=== PATIENT | male | born 1950 | race Caucasian/White ===

== ENCOUNTER → 2019-05-17 16:37 | Outpatient (CLI) | payer OTHER, SELFPAY ==
[2019-05-17 18:15] LABS: Cholesterol 186 mg/dL (140-199); HDL Cholesterol 42 mg/dL (40-60); LDL Cholesterol Calculated 91 mg/dL (<100); Triglycerides 266 mg/dL (35-150)
== END ==
PROVIDERS: PCP Family Medicine; Visit Provider Internal Medicine Cardiovascular Disease
DX: E78.5 Hyperlipidemia, unspecified (principal)
CPT/HCPCS: 36415; 80061

== ENCOUNTER → 2019-06-22 07:48 | Outpatient (CLI) | payer OTHER, SELFPAY ==
--- NOTE | 2019-06-22 | DI.ECHO.S_ITS ---
[place] +---------+ [facility] +---------+ : : [address] : : : : [id number] : : : : Phone: [phone]+ Echocardiogram Report + + :Name: MARIE PERLA Study Date: 06/22/2019 Height: 69 in : :[facility] Weight: 182 lb : : Gender: Male BSA: 2.0 m2 : :: 1950 Age: 68 yrs BP: 158/62 mmHg: :Reason For Study: Arrhythmia, SVT : :Ordering Physician: Aimee Singletary : :Rosalind Performed By: Rima Rodriguez : :Referring: Dr. Santiago Guzmán : + + Interpretation Summary 1) Normal left ventricular size, wall motion, and systolic function (EF 60- 65%). 2) The right ventricle grossly appears normal in size with probable normal systolic function. 3) No significant valvular abnormalities. 4) No prior Echo available for comparison. Procedure: A two-dimensional transthoracic echocardiogram with color flow and Doppler was performed. The study quality was technically adequate. There is no prior echocardiogram noted for this patient. The patient was in normal sinus rhythm during the exam. Left Ventricle: The left ventricle is normal in size, wall thickness, and systolic function without any focal wall motion abnormalities. The ejection fraction is estimated to be 60-65%. Diastolic function could not be accurately assessed due to atrial fibrillation. Right Ventricle: The right ventricle grossly appears normal in size with probable normal systolic function. Atria: The left atrium is borderline dilated. Right atrial size is normal. The interatrial septum is intact with no evidence for an atrial septal defect. Mitral Valve: The mitral valve is normal in structure and function. There is no mitral regurgitation noted. Aortic Valve: The aortic valve opens well. No aortic regurgitation is present. Tricuspid Valve: The tricuspid valve is normal in structure and function. No tricuspid regurgitation. Pulmonic Valve: The pulmonic valve is not well seen, but is grossly normal. There is no pulmonic valvular regurgitation. Great Vessels: The aortic root is normal size. The ascending aorta is at the upper limits of normal in size. The aortic arch is normal in size. The IVC is of normal diameter and collapses greater than 50% with a sniff. This suggests a low right atrial pressure of 3 mm Hg. Pericardium/ Pleura There is no pericardial effusion. There is no pleural effusion. MMode/2D Measurements & Calculations LVIDd: 4.6 cm Ao root diam: 3.6 cm LVIDs: 2.8 cm Aortic Jxn: 2.9 cm FS: 38.8 % asc Aorta Diam: 3.6 cm EPSS: 0.40 cm Ao Arch Diam (Prox Trans): 2.7 cm IVSd: 0.98 cm LVPWd: 1.1 cm LV petersen. diameter/BSA (cm/m^2): 2.3 LV sys. diameter/BSA (cm/m^2): 1.4 LA dimension: 3.8 cm RA long axis: 4.9 cm LA A2 area: 21.5 cm2 RA area: 18.0 cm2 LA A4 area: 20.9 cm2 RA vol: 56.3 ml LA length (vol): 5.4 cm RA : 28.4 ml/m2 LA vol: 71.0 ml RVDd major: 6.1 cm LA vol index: 35.8 ml/m2 RVD1 (basal): 3.8 cm RVD2 (mid): 3.1 cm Doppler Measurements & Calculations Ao V2 max: 124.6 cm/sec MV E max jamil: 60.0 cm/sec Ao V2 mean: 81.2 cm/sec MV A max jamil: 75.8 cm/sec Ao max P.2 mmHg MV E/A: 0.79 Ao mean P.1 mmHg Med Peak E' Jamil: 6.6 cm/sec Ao V2 VTI: 26.1 cm E/E' med: 9.0 Lat Peak E' Jamil: 6.2 cm/sec E/E' lat: 9.7 E/e' average: 9.3 MV dec time: 0.36 sec MV P1/2t: 107.0 msec PA V2 max: 82.1 cm/sec MV P1/2t max jamil: 60.5 cm/sec PA V2 mean: 55.4 cm/sec MVA(P1/2t): 2.1 cm2 PA mean P.4 mmHg PA Accel Time: 0.16 sec Reading Physician:10:27 AM
--- NOTE | 2019-06-22 | DI.NM.S_ITS ---
PROCEDURE: NM TERRIE PERF SPECT REST & STR Rest and exercise myocardial perfusion SPECT with gated imaging and ejection fraction RADIOPHARMACEUTICAL: 13.8 mCi Tc-99m sestamibi IV at rest and 26.7 mCi Tc-99m sestamibi IV at peak exercise. A two day-protocol was performed. INDICATIONS: Ventricular tachycardia TECHNIQUE: Radiopharmaceutical was injected at peak stress test, and also at rest. SPECT images were obtained. SPECT myocardial perfusion images were displayed in short axis, horizontal long axis, and vertical long axis views. Gated images were reviewed using [employer] software. COMPARISON: None. CARDIAC STRESS: A standard Obed treadmill exercise tolerance test was performed by the patient under the supervision of an attending staff. The patient exercised for 4 minutes and 56 seconds; functional aerobic impairment (RAZ) is +25% on sedentary scale. Hemodynamic data: There is normal heart rate response to exercise stress. Patient achieved 105% of maximum predicted heart rate at peak exercise. Resting BP 158/80mmHg max BP 202/104mmHg suggesting hypertension and borderline hypertensive response. Symptoms: Patient denied chest pain during exercise. EKG: Resting ECG shows normal sinus rhythm. No diagnostic ECG changes of ischemia with exercise; rare PVCs during recovery. FINDINGS: Raw data: There is good myocardial labeling by radiotracer. No significant motion artifacts. Dmmf-rj-[id number] ratio is 0.37 (normal is less than 0.38 for sestamibi tracer, and less than 0.50 for thallium tracer). Left ventricle function: Gated images demonstrate normal left ventricle wall thickening. No segmental wall motion abnormality. No transient ischemic dilation; TID is 0.7 (normal less than 1.3). The left ventricle resting end-diastolic volume is 101 mL. Left ventricle stress ejection fraction is 72%; normal values are above 45%. Myocardial perfusion: There is a moderately severe fixed defect in the inferior wall that resolves with prone imaging, suggesting diaphragmatic attenuation artifact than true ischemia or infarct. IMPRESSION: Low risk, normal treadmill nuclear stress test. 1) No perfusion evidence of ischemia or infarction. Diaphragmatic attenuation artifact present. 2) Normal left ventricular size, wall motion, and systolic function (EF post stress 72%). 3) No ECG evidence of ischemia. Rare PVCs during recovery. 4) No angina during the study. 5) Reduced exercise tolerance (7.0 METs, RAZ +25% on sedentary scale). Target heart rate achieved. 6) Resting BP 158/80mmHg max BP 202/104mmHg suggesting hypertension and borderline hypertensive response. 7) No prior nuclear stress test available for comparison. Dictated by: Aimee Boyer MD on 06/23/2019 at 13:03 Approved by: Aimee Boyer MD on 06/23/2019 at 13:08
--- NOTE | 2019-06-22 14:57 | PM.TREADMILL ---
Cardiac Stress Test Report Referral & Results Date Patient Seen: 06/22/19 Requesting provider: Aimee Boyer Indication: Dysrhythmia Rest ECG: Unremarkable Procedure Note: Today following both written and verbal informed consent the patient was exercised according to a standard Obed protocol patient went for a total of 4 minutes 56 seconds achieving a maximum heart rate of 158 maximum systolic blood pressure of 200 to. This is approximately 7.0 METS. Exercise was terminated at this point because of inability patient keep up with the treadmill and hip pain. Patient was also given Cardiolite through a previously started Hep-Lock IV by the diagnostic imaging staff approximately 1 minute prior to the cessation of exercise. No ST-T segment changes identified Patient was quickly tachycardic and overall somewhat hypertensive in his response to exercise. His heart rate was very slow to return to baseline during recovery portion of the test. Occasional PACs PVCs and a ventricular couplet were noted Functional aerobic impairment rates about 25% of the sedentary scale Impression: No evidence of ischemia based on usual ECG criteria Limited exercise capacity Please see perfusion imaging report as well Please note: Actual ECG tracings can be found in the PACS system.
== END ==
PROVIDERS: PCP Family Medicine; Visit Provider Internal Medicine Cardiovascular Disease
DX: I47.2 Ventricular tachycardia (principal); I47.1 Supraventricular tachycardia; I49.9 Cardiac arrhythmia, unspecified
CPT/HCPCS: 78452; 93016; 93017; 93018; 93306; A9502

== ENCOUNTER → 2019-08-20 11:55 | Outpatient (CLI) | payer OTHER, SELFPAY ==
--- NOTE | 2019-08-20 | DI.US.S_ITS ---
PROCEDURE: US ARTERIAL DUPLEX LE BI INDICATIONS: Peripheral vascular disease, unspecified TECHNIQUE: Color and pulse Doppler interrogation was performed of both lower extremity arterial systems, with image documentation. COMPARISON: None. FINDINGS: Right lower extremity: Common femoral artery: 100 cm/sec, with biphasic flow. Deep femoral artery: 136 cm/sec, with biphasic flow. Proximal superficial femoral artery: 80 cm/sec, with monophasic flow. Mid superficial femoral artery: 24 cm/sec with minimal monophasic Distal superficial femoral artery: 46 cm/sec, with monophasic flow. Popliteal artery: 32 cm/sec, monophasic. Posterior tibial artery: 24 cm/sec, with monophasic flow proximally although appears occluded at the mid segment. Anterior tibial artery/dorsalis pedis: 9 cm/sec, with minimal monophasic flow at the mid segment, and occluded distally. Wong-scale imaging description: Extensive scattered plaque Left lower extremity: Common femoral artery: 110 cm/sec, with biphasic flow. Deep femoral artery: 122 cm/sec, with biphasic flow. Proximal superficial femoral artery: 86 cm/sec, with biphasic flow. Mid superficial femoral artery: 200 cm/sec, with biphasic flow. Distal superficial femoral artery: 65 cm/sec, with biphasic flow. Popliteal artery: 73 cm/sec, with biphasic flow. Posterior tibial artery: Occluded, with minimal reconstituted flow within the mid segment Anterior tibial artery/dorsalis pedis: 69 cm/sec, with biphasic flow. Wong-scale imaging description: Multilevel scattered plaque IMPRESSION: Extensive bilateral lower extremity atherosclerotic plaque. Bilateral areas of arterial occlusion seen in both posterior tibial arteries, and high-grade stenosis at the mid left superficial femoral artery. Possible right sided inflow stenosis which could be further assessed with CT angiogram and runoff. Diminutive flow and minimal reconstitution seen throughout the remaining lower extremities bilaterally. Further evaluation with dedicated CT angiogram and runoff recommended. Dictated by: Jian Craig M.D. on 08/20/2019 at 15:21 Approved by: Jian Craig M.D. on 08/20/2019 at 15:28
== END ==
PROVIDERS: PCP Family Medicine; Visit Provider Internal Medicine Cardiovascular Disease
DX: I70.203 Unspecified atherosclerosis of native arteries of extremities, bilateral legs (principal)
CPT/HCPCS: 93925

== ENCOUNTER → 2021-08-31 07:47 | Outpatient (CLI) | payer OTHER, SELFPAY ==
[2021-08-31 08:51] LABS: Add Manual Diff / Slide Review NO; Basophils Absolute Auto 0 /uL (0-100); Basophils Percent Auto 0.5 % (0-2); Eosinophils Absolute Auto 200 /uL (0-450); Hematocrit 40.1 % (41-53); Hemoglobin 13.5 g/dL (13.5-17.5); Lymphocytes Absolute Auto 1400 /uL (1100-4500); Lymphocytes Percent Auto 20.9 % (25-40); Mean Corpuscular HGB Conc 33.7 % (30-36); Mean Corpuscular Hemoglobin 31.2 PG (26-34); Mean Corpuscular Volume 92.7 fL (80-100); Monocytes Absolute Auto 600 /uL (0-900); Monocytes Percent Auto 8.9 % (3-14); Neutrophils Absolute Auto 4500 /uL (1500-7000); Neutrophils Percent Auto 66.7 % (50-75); Platelet Count 110 X10^3/uL (150-400); Red Blood Cell Count 4.32 X10^6/uL (4.5-5.9); Red Cell Distribution Width 15.5 % (11.6-14.8); White Blood Cell Count 6.8 X10^3/uL (4.5-11.0)
[2021-08-31 09:11] LABS: INR 1.1 (0.9-1.3); Prothrombin Time 12.7 SECONDS (10.1-12.7)
[2021-08-31 09:13] LABS: PTT Partial Thromboplastin Tim 30 SECONDS (26.4-36.2)
[2021-08-31 09:15] LABS: BUN Creatinine Ratio 12.2 (6-22); Blood Urea Nitrogen 12 mg/dL (9-20); Calcium 9.6 mg/dL (8.4-10.2); Carbon Dioxide 29 mmol/L (22-32); Chloride 102 mmol/L (98-107); Estimated Glomerular Filt Rate > 60.0 mL/min (>60); Glucose 98 mg/dL (80-110); HEMOLYSIS < 15 (0-50); Potassium 3.8 mmol/L (3.4-5.1); Sodium 141 mmol/L (137-145)
== END ==
PROVIDERS: PCP Nurse Practitioner; Referring Provider Orthopaedic Surgery; Visit Provider Orthopaedic Surgery
DX: Z01.818 Encounter for other preprocedural examination (principal); Z01.812 Encounter for preprocedural laboratory examination; N39.0 Urinary tract infection, site not specified; Z51.81 Encounter for therapeutic drug level monitoring
CPT/HCPCS: 80048; 85025; 85610; 85730; 93005

== ENCOUNTER → 2021-09-24 11:35 | Outpatient (CLI) | payer OTHER, SELFPAY ==
[2021-09-24 13:41] LABS: COVID19 -Nasal RAPID Negative (Negative)
== END ==
PROVIDERS: PCP Nurse Practitioner; Visit Provider Nurse Practitioner Family
DX: Z20.822 Contact with and (suspected) exposure to COVID-19 (principal); Z01.812 Encounter for preprocedural laboratory examination
CPT/HCPCS: 87635

== ENCOUNTER 2021-09-25 08:37 | Observation (INO) | payer OTHER, SELFPAY ==
[2021-09-13 09:57] VITALS: BMI 28.0
[2021-09-25] VITALS (13 sets, daily range): BP systolic 124–177; BP diastolic 71–105; PULSE 67–83; RESP 12–18; TEMP 35.9–36.8; O2SAT 95–99; BMI 28.0
--- NOTE | 2021-09-25 06:00 | DI.RAD.S_ITS ---
PROCEDURE: XR HIP W PEL IF DONE RT 2V INDICATIONS: postop prosthesis placement TECHNIQUE: AP pelvis and lateral view of the right hip acquired. COMPARISON: None. FINDINGS: Bones: Patient is status post right hip arthroplasty, with hardware components in expected positions. The hip joint appears congruent. The visualized bony structures appear intact. Soft tissues: Overlying postoperative changes are noted. No suspicious soft tissue densities. IMPRESSION: Postop changes from right total hip arthroplasty with anatomic alignment. Dictated by: Thang Cardenas M.D. on 09/25/2021 at 14:01 Approved by: Thang Cardenas M.D. on 09/25/2021 at 14:01
--- NOTE | 2021-09-25 07:13 | DI.RAD.S_ITS ---
PROCEDURE: XR PELVIS 1-2V INDICATIONS: INTEROPERATIVE TOTAL RIGHT HIP TECHNIQUE: Intra-operative view of the pelvis and hip acquired. COMPARISON: July 04, 2021. FINDINGS: Bones: Interval placement of a right hip arthroplasty. No fractures or suspicious bony lesions. Soft tissues: Expected intraoperative changes are noted. Vascular calcifications are seen. IMPRESSION: Expected postsurgical change. Dictated by: Master Velazquez M.D. on 09/25/2021 at 12:55 Approved by: Master Velazquez M.D. on 09/25/2021 at 12:59
[2021-09-25] MEDS: PREGABALIN 75 MG CAPSULE PO (09:16)
[2021-09-25] MEDS: CELECOXIB 200 MG CAPSULE PO (09:16)
[2021-09-25] MEDS: ACETAMINOPHEN 325 MG TABLET 975 MG PO (09:16)
[2021-09-25] MEDS: LACTATED RINGERS 1,000 ML 42 ML IV (09:16)
[2021-09-25] MEDS: VANCOMYCIN 1,000 MG/200 ML PIGGYBACK 200 MG IV (09:43)
--- NOTE | 2021-09-25 09:56 | SUR.PREOP ---
POC INR 1.1
--- NOTE | 2021-09-25 10:04 | P.OP_ITS ---
Operative Date/Time/Diagnoses Date of procedure: 09/25/21 Time of procedure: 11:00 Pre-op diagnosis: right hip OA Post-op diagnosis: same Procedure & Clinicians Procedure: Right total hip arthroplasty posterior approach Same procedure as scheduled: Yes Indications: The patient has had progressively worsening right hip pain with radiographic changes consistent with arthritis. Non-operative management has failed and the patient has requested total hip replacement. The risks, benefits and alternatives to surgery were discussed with the patient prior to proceeding. Risks discussed included, but were not limited to, failure to relieve pain, leg length discrepancy, dislocation, stiffness, infection, nerve damage, deep venous thrombosis, pulmonary embolism, stroke, coma, heart attack, permanent paralysis and , as well as the potential need for eventual revision of the prosthetic. Surgeon: Jeannette Garcia Thermoplastic Technician: Melvin Solomon Anesthesia Type: General and Spinal Operative Notes Findings: Severe right hip osteoarthritis, adequate stability, good bone Closure Type: primary Specimen(s): none sent Prosthetic devices, grafts, tissues, transplants, or devices: [employer] anthology a fit size 7 femur, size 54 R3 cup, +0 x 36 mm Oxinium head, neutral liner Applied: drain(s) Estimated Blood Loss (mL): 250 Blood products transfused: none Procedure in detail: The patient was seen in the pre-operative area, where the patient identified the right hip as the operative site and this was marked with my initials. The patient received pre-operative antibiotics and was taken to the operating room and placed on the operative table in the left lateral decubitus position after satisfactory anesthesia. A space technologist out was performed. The right leg was prepared from the ankle to the iliac crest with ChloroPrep in the usual fashion and draped through sterile drapes. The hip was approached through an approximately 20 cm incision centered over the greater trochanter and curving gently posteriorly as it went proximally. This was carried sharply to the fascia negrito, which was divided and retracted with a self retaining retractor. The trochanteric bursa was excised with care being taken to avoid the sciatic nerve, which was identified and protected throughout the case. The short external rotators were incised and the capsulomuscular flap was raised and tagged for later repair. The hip was dislocated, and a femoral neck osteotomy performed approximately 15 mm above the lesser trochanter. Retractors were placed around the femur. The canal was opened with a box cutting osteotome, followed by a T handled reamer and a lateralizing reamer. The chili pepper broach was then used, followed by sequential broaching until there was good stability of the broach in the femur. Retractors were placed to expose the acetabulum. The labrum and central soft tissues were removed. Reaming was performed initially going up in 2 mm increments, then 1 mm increments until good bite was obtained with an odd sized reamer. The cup 1 mm larger than the last reamer was then inserted using the appropriate anteversion guides. A trial neutral liner was placed. The broach was placed in the canal. A trial head and neck were then placed and the hip relocated and checked for leg length and stability. An intraoperative film confirmed the component position and no evidence of fracture. The patient was stable in the position of sleep, of squatting, and could be put through a range of motion with 45 degrees internal rotation without dislocation. At 90 degrees flexion, internal rotation to 70? was possible before dislocation. This was felt to be satisfactory and the appropriate components were opened, and the trials were removed. The cup was further stabilized with a single screw. The acetabular liner was impacted into position. The final stem was then impacted into the prepared femoral canal. A brief Betadine soak was performed while trialing with head options. The hip was meticulously irrigated with normal saline. Finally the femoral head was impacted onto the stem. The acetabulum was cleared of all material and the hip relocated one final time. The capsulomuscular flap was then repaired to the greater trochanter though an awl hole using the tag sutures. The short external rotators were repaired with a nonabsorbable suture. A deep drain was placed and brought out anteriorly. The fascia negrito was closed with Vicryl. The subcutaneous layer was closed with barbed sutures and SteriStrips. An Aquacel Ag dressing was applied and the patient was taken to recovery having tolerated the procedure well. Complications: none Post-operative Condition: stable Disposition: Acute Care Plan for aftercare: The patient will be maintained on a standard total hip replacement protocol with weight bearing as tolerated and posterior hip precautions. The patient will receive Aspirin and sequential compression devices for DVT prophylaxis. The patient will be discharged home when safe for the home environment.
--- NOTE | 2021-09-25 10:04 | PM.PREOP ---
Pre-operative Note COVID-19 COVID-19 status: Negative Interval Note History & Physical reviewed/Exam performed by Physician: Yes Changes to H&P: No
[2021-09-25] MEDS: CEFAZOLIN 1 GM VIAL 2 GM IV ×2 (11:10→18:26)
[2021-09-25] MEDS: TRANEXAMIC ACID 1,000 MG VIAL 1000 MG INJ ×2 (11:11→12:32)
--- NOTE | 2021-09-25 11:26 | SUR.OPER ---
Lateral on padded OR bed. Gel axillary roll. Arms secured on padded armboard with pillow supporting top arm. Padded hip positioner braces x4 - anterior and posterior chest and pelvis. Additional gel pad used anterior pelvis. Gel pad under bottom leg from knee to foot and secured with tape over sheet.
[2021-09-25] MEDS: BUPIVACAINE LIPOSOME 266 MG/20 ML VIAL INJ (11:34)
[2021-09-25] MEDS: BUPIVACAINE 0.25% (PF) 60 ML, EPINEPHrine 0.3 MG INJ (11:35)
--- NOTE | 2021-09-25 13:43 | SUR.PHASEI ---
1325 Report given to RN on acute care. Patient awake in no pain. Not feeling legs and feet due to spinal
[2021-09-25] MEDS: LACTATED RINGERS 1,000 ML 125 ML IV ×2 (13:57→22:07)
[2021-09-25] MEDS: SODIUM CHLORIDE 0.9% FLUSH 10 ML IV (13:58)
[2021-09-25] MEDS: ACETAMINOPHEN 325 MG TABLET 650 MG PO ×2 (15:59→20:36)
--- NOTE | 2021-09-25 17:14 | PC.NURSE ---
Addendum entered by Rowena Heard R.N. 09/25/21 18:59: Pt requesting to get out of bed to the BR. Using hip precautions, mobilizes and ambulates to toilet. Voiding minimal amount + flatus. Ambulating with steady gait, x1 CGA. Original Note: Pt arrived from PACU at 1340. Pt is A&Ox3 on RA. He reports increased movement to BLE's and slightly decreased sensation. SBP slightly elevated 140's to 150's he states not taking BP meds this a.m. Pt with NS at 125ml/hr, no urge to void. MD Garcia at bedside this evening encouraging patient to stand to pee and move. Pt states still feeling slightly numb, assisted to reposition. Pt tolerating advanced diet without n/v. Continuous monitoring.
[2021-09-25] MEDS: OXYCODONE IR 5 MG TABLET PO ×2 (19:53→23:06)
[2021-09-25] MEDS: DOCUSATE 100 MG CAPSULE PO (20:35)
[2021-09-25] MEDS: LOSARTAN 50 MG TABLET 100 MG PO (20:36)
[2021-09-25] MEDS: ASPIRIN EC 81 MG TABLET PO (20:36)
[2021-09-25] MEDS: ATORVASTATIN 20 MG TABLET PO (20:36)
[2021-09-26 00:51] VITALS: BP 150/92; PULSE 76; RESP 18; TEMP 36.6; O2SAT 99
[2021-09-26] MEDS: CEFAZOLIN 1 GM VIAL 2 GM IV (02:11)
[2021-09-26] MEDS: OXYCODONE IR 5 MG TABLET PO ×2 (02:13→05:15)
[2021-09-26 05:00] VITALS: BP 150/90; PULSE 67; RESP 18; TEMP 36.6; O2SAT 99
[2021-09-26 05:03] LABS: Hematocrit 33.6 % (41-53); Hemoglobin 11.5 g/dL (13.5-17.5)
--- NOTE | 2021-09-26 08:17 | PM.DS.1 ---
History of Present Illness History of Present Illness Date Patient Seen: 09/26/21 Time Patient Seen: 08:18 Chief complaint: Right hip pain s/p right ROBIN Narrative: Patient is complaining of dith-er-yoxnlwod right hip pain after his total hip arthroplasty yesterday. He denies any new numbness or tingling. No nausea, vomiting. No fevers, chills, night sweats. Overall the patient is feeling well and would like to be discharged home today after physical therapy. Discharge Providers Provider Discharge Date: 09/26/21 Primary care physician: MAYA Renteria Consults: 09/13/21 14:19 Consult to Anesthesiology Routine Comment: Consulting Provider: Anesthesiologist Reason for consultation: Surgeon requested re: Cardiac 09/25/21 06:00 Consult to Anesthesiology Routine Comment: Consulting Provider: Anesthesiologist Reason for consultation: Regional block for post operative pain control 09/25/21 13:38 Consult to Discharge Planning Routine Comment: Consult to Physical Therapy Evaluate & Treat Comment: Physician Instructions: post op ROBIN protocol Consult to Respiratory Therapy Evaluate & Treat Comment: Physician Instructions: Evaluate and treat Discharge provider: Marcela Cardoso PA-C Summary Hospital Course Discharge Diagnosis: Right hip osteoarthritis Hospital Course: Date of procedure: 09/25/21 Time of procedure: 11:00 Procedure & Clinicians Procedure: Right total hip arthroplasty posterior approach Same procedure as scheduled: Yes Indications: The patient has had progressively worsening right hip pain with radiographic changes consistent with arthritis. Non-operative management has failed and the patient has requested total hip replacement. The risks, benefits and alternatives to surgery were discussed with the patient prior to proceeding. Risks discussed included, but were not limited to, failure to relieve pain, leg length discrepancy, dislocation, stiffness, infection, nerve damage, deep venous thrombosis, pulmonary embolism, stroke, coma, heart attack, permanent paralysis and , as well as the potential need for eventual revision of the prosthetic. Surgeon: Jeannette Garcia Windows 7 Deployment Lead: Melvin Solomon Anesthesia Type: General and Spinal Operative Notes Findings: Severe right hip osteoarthritis, adequate stability, good bone Closure Type: primary Specimen(s): none sent Prosthetic devices, grafts, tissues, transplants, or devices: Garcia [employer]hew anthology a fit size 7 femur, size 54 R3 cup, +0 x 36 mm Oxinium head, neutral liner Applied: drain(s) Estimated Blood Loss (mL): 250 Blood products transfused: none Status at Discharge Cognitive/behavioral status at discharge: oriented Functional status at discharge: uses cane/walker Overall status at discharge: patient is progressing back to baseline Exam Vital Signs (past 8 hours): - 09/26/21 00:51 09/26/21 05:00 Temperature 97.9 F 97.9 F Pulse Rate 76 67 Respiratory Rate 18 18 Blood Pressure 150/92 H 150/90 H Pulse Oximetry 99 99 Oxygen Delivery Method Room Air Oxygen Flow Rate 0 Narrative Exam Narrative: Pleasant 70-year-old male, resting comfortably in bed, no acute distress. Incision is clean, dry, intact. Bilateral lower extremity motor functions are grossly intact. Sensation is grossly intact to light touch in bilateral lower extremities. Bilateral calves are soft, nontender to palpation. Objective Labs Result Diagrams: 09/26/21 04:51 Labs: Laboratory Results - last 24 hr 09/26/21 04:51 Hgb 11.5 L Hct 33.6 L PFSH Medical History Acid reflux Arrhythmia Rangel's esophagus Former smoker Hepatitis C (~2010) HLD (hyperlipidemia) HTN (hypertension) Osteoarthritis Pacemaker (03/23/21) Pre-diabetes Skin cancer Surgical History History of prior ablation treatment (06/21/19) History of vasectomy Hx of angioplasty (~2019) Hx of bilateral cataract extraction (2019) Social History household members: spouse Smoking Status: Former smoker alcohol intake: current Discharge Assessment & Plan Assessment and Plan Assessment: Stable status post right total hip arthroplasty, posterior approach Plan of Treatment: -mobilize with PT. Weightbearing as tolerated with front wheel walker. Maintain posterior hip precautions x6 weeks -continue with current pain regimen and DVT prophylaxis -planning on DC home today once cleared by Physical therapy Discharge Plan Discharge Plan Patient Disposition: Home Discharge orders & Medications Discharge Orders: Discharge (Order); Ordered 09/26/21 Ordered By: Marcela Cardoso Prescriptions: New acetaminophen 500 mg capsule 500 mg PO Q4H MDD Max 6 tabs per day PRN (Reason: fever or pain) Qty: 90 RF: 0 aspirin 81 mg Tablet,Delayed Release (Dr/Ec) 81 mg PO BID PRN (Reason: X6 weeks to prevent blood clots) Qty: 90 RF: 0 docusate sodium 100 mg Capsule 100 mg PO BID PRN (Reason: Constipation from narcotic pain meds) Qty: 30 RF: 0 oxycodone 5 mg Tablet 5 mg PO Q3HR PRN (Reason: Pain, Moderate (4-6)) Qty: 42 RF: 0 ibuprofen 400 mg tablet 400 mg PO Q4H MDD Max 2400 mg per day PRN (Reason: Pain/inflammation) Qty: 90 RF: 0 Continued atorvastatin 20 mg Tablet 20 mg PO BEDTIME RF: 0 tamsulosin [Flomax] 0.4 mg Capsule 0.4 mg PO DAILY RF: 0 losartan 100 mg Tablet 100 mg PO BEDTIME RF: 0 fluticasone propionate 50 mcg/actuation Holstein,Suspension 1 spray INTRANASAL BEDTIME PRN (Reason: Seasonal allergies) RF: 0 omeprazole 20 mg Tablet,Delayed Release (Dr/Ec) 20 mg PO DAILY RF: 0 Discontinued aspirin [Aspir-81] 81 mg Tablet,Delayed Release (Dr/Ec) 81 mg PO Q OTHER DAY RF: 0 Follow up/Referrals: Jasmine Knight ARNP [Primary Care Provider] - Jeannette Garcia MD [Physician] - (10-14 days for postoperative visit) Diet/Activity/Treatments Diet: Diet as Tolerated and Regular Other treatments: Medications: -Aspirin 81mg twice daily x6 weeks to prevent blood clots. -OTC Tylenol 500 mg 1 tablet every 4 hours as needed for pain/fever. Max 6 tablets per day. -Ibuprofen 400 mg 1 tablet every 4 hours as needed for pain/inflammation. Max 2,400 mg per day. -Oxycodone 5 mg take 1-2 tablets every 4 hours as needed for moderate-severe pain (narcotic pain medication). -As needed medications: -Ducolax and /or MiraLax as needed for constipation from narcotic pain medications. -Pepcid AC as needed for stomach upset (usually from aspirin or ibuprofen). Dressing/Wound care: -Keep Aquacell dressing in place until postoperative follow-up office visit. -Okay to shower. Keep wound out of direct water stream. No soaking or submerging until all the scabs fall off (approximately 6 weeks). -Please call the office if dressing becomes wet, soiled, or saturated. Activities: -Maintain posterior hip precautions x6 weeks. -Weight-bearing as tolerated. Use front wheeled walker, and progress to cane when safe. -Continue with home exercises as directed by your physical therapist. -Elevate ?toes above the nose if you have significant swelling in your lower leg. (A wedge pillow is easiest.) -Ice your incision as needed for pain/inflammation/swelling. Protect your skin with a folded pillowcase. Follow-up: -Follow-up with your surgeon or PA in the office in 10-14 days after surgery. -Follow-up with your surgeon 6 weeks postoperatively. Call the office if you have chest pain, shortness of breath, significant swelling that will not resolve with elevating, fever over 101?, significantly worsening pain. [facility]: [phone] Skin/Wound/Dressing Care Report to your healthcare provider any signs of infection, such as:: chills, fever, night sweats, unusual drainage and unusual redness Visit Report/Discharge Packet Instructions: DI for Hip Replacement Stand Alone Forms: Surgery Discharge Discharge Data Primary Care Provider: Jasmine Knight Attending Provider: Jeannette Garcia Quality VTE Deep Vein Thrombosis/Pulmonary Embolism Present on Admission: No
[2021-09-26] MEDS: TAMSULOSIN 0.4 MG CAPSULE PO (09:23)
[2021-09-26] MEDS: ASPIRIN EC 81 MG TABLET PO (09:23)
[2021-09-26] MEDS: PANTOPRAZOLE DR 20 MG TABLET PO (09:23)
[2021-09-26] MEDS: OXYCODONE IR 10 MG TABLET PO ×2 (09:23→12:01)
[2021-09-26] MEDS: ACETAMINOPHEN 325 MG TABLET 650 MG PO (09:23)
[2021-09-26] MEDS: DOCUSATE 100 MG CAPSULE PO (09:23)
--- NOTE | 2021-09-26 09:30 | PT.IIE ---
Current Diagnoses Unilateral primary osteoarthritis, right hip (09/25/21) Surgery Performed Operation Date: 09/25/21 10:45 Actual Procedures p Total Hip Arthroplasty(Right) - Jeannette Garcia MD Medical History (Last Reviewed 09/26/21 @ 08:19 by Marcela Cardoso PA-C) Acid reflux Arrhythmia Rangel's esophagus Former smoker Hepatitis C (~2010) HLD (hyperlipidemia) HTN (hypertension) Osteoarthritis Pacemaker (03/23/21) Pre-diabetes Skin cancer Physical Therapy Inpatient Evaluation/Re-Eval M1 PT/OT-IP Prior Functional Status Start: 09/26/21 12:15 Freq: NEEDED Status: Active Protocol: Document 09/26/21 09:30 AB (Rec: 09/26/21 12:30 AB [id number]) Medical Review Prior Functional Status Medical History Reviewed Yes Communication able to make needs known Mobility and Gait pt stated that he is independent with all mobilities and ambulation without AD Social History Household Members spouse Living Arrangements House Number of Floors (Floors) One Floor Number of Stairs To Enter/Railing? 2 steps to enter withotu rails Home Environment Standard Height Toilet,Walk in Shower,Built-In Shower Seat Home Equipment Front Wheel Walker,Straight Cane,Raised Toilet Seat Without Armrests,Hand Held Shower,Grab Bars Near Toilet, Grab Bars In Shower M2 PT-IP Current Condition Start: 09/26/21 12:15 Freq: NEEDED Status: Active Protocol: Document 09/26/21 09:30 AB (Rec: 09/26/21 12:30 AB [id number]) Physical Therapy Current Condition Current Condition Evaluation Date 09/26/21 Treatment Diagnosis s/p R ROBIN posterior approach; difficulty in walking Onset Date 09/25/21 M3 PT-IP Subjective Start: 09/26/21 12:15 Freq: NEEDED Status: Active Protocol: Document 09/26/21 09:30 AB (Rec: 09/26/21 12:30 AB [id number]) Subjective Physical Therapy Visit Type Type Initial Evaluation Visit Start Time 09:30 Visit Stop Time 10:40 Total Visit Minutes 70 Number of INTERNATIONAL SOURCING MANAGER Visits 0 Physical Therapy Visit Comments Patient Comments agreeable to do PT Therapy Pain Assessment Pain When Pain Assessed At Rest Pain Present Pain Present Pain Reported Location right hip Intensity 5 Scale Used Numeric (0 - 10) Pain Management Techniques Apply Cold,Modification of Treatment,Re-positioning, Timing of Activity with Medications M4 PT-IP Mobility and Gait Start: 09/26/21 12:15 Freq: NEEDED Status: Active Protocol: Document 09/26/21 09:30 AB (Rec: 09/26/21 12:30 AB [id number]) PT-Bed Mobility Assessment Supine to Sit Supine to Sit Standby Assistance PT-Transfer Assessment Sit to and From Stand Sit to and from Stand Standby Assistance,Contact Guard Assistance,1 Person Assistance,Use of Upper Extremities Equipment Transfer Assistive Device Gait Belt,Front Wheeled Walker Orthotic/Prosthetic Devices or Brace: No Transfers Transfer Destination Chair,Toilet Transfer Technique ambulated Transfer Ability Level of Assist Standby Assistance,Contact Guard Assistance,1 Person Assistance,Use of Upper Extremities Comments Mobility Comments educated pt on hip precautions . pt requires cues to recall. BP: 177/105. informed nurse. pt completed supine to sit SBA . ambulated in room using FWW CGA and cues for hip precautions. pt requested to use the toilet and ambulated tot he toilet using FWW SBA to CGA. completed sit to stand from the toilet SBA using grab bar and ambulated to the the sink using FWW SBA and was able to maintain standing leaning against the sink while completing handwashing. pt rested on chair. educated on stair climbing techniques. pt completed sit to stand from chair SBA and ambulated out in the hallway using FWW. completed up/down platform step using SPC CGA and cues. pt ambulated back to the room and rested. pt refuse caregiver training with spouse . instructed pt to get up again and do stairs and completed sit to stand SBA. able to position LE to adhere to precautions and ambulated using FWW SBA. completed platform step again using SPC SBA to CGA without cues and was steady. ambulated back to his room using FWW SBA. positioned on chair. call light and table placed within reach. Gait Assessment Gait Gait Assistance Required: Standby Assistance,Contact Guard Assist Distance (Feet) 40 Able to Maintain Weight Bearing Status Yes During Gait Assistive Devices Assistive Device Gait Belt,Front Wheeled Walker Orthotic/Prosthetic Devices or Brace: No Gait Deviations General Gait Pattern Antalgic,Decreased Stride Length,Decreased Feet Clearance Factors Limiting Gait Function Factors Limiting Gait Function Decreased Activity Tolerance, Decreased Strength,Limited Range of Motion,Pain,Poor Balance,Poor Safety Awareness Stair Climbing Assessment Evaluation Level of Assist On Stairs Contact Guard Assistance,1 Person Assistance Devices Stair Climbing Assistive Devices Straight Cane Technique/Endurance Stair Climbing Direction Ascend and Descend Stair Climbing Technique Step to Step Number of Steps Climbed 1 Query Text: Stair Climbing Set # Repetitions (reps) 6 PT-Balance Assessment Sitting Balance and Reactions Static Sitting Balance Ability Good Dynamic Sitting Balance Ability Good Standing Balance and Reactions Static Standing Balance Ability Fair Dynamic Standing Balance Ability Fair Device Used FWW M5 PT-IP Objective Assessments Start: 09/26/21 12:15 Freq: NEEDED Status: Active Protocol: Document 09/26/21 09:30 AB (Rec: 09/26/21 12:30 AB [id number]) Orientation Orientation/Cognition Level of Alertness Alert Orientation Name,Place,Situation Safety Awareness Decreased Safety Awareness Memory Description Short Term Impaired Gross Range of Motion Lower Extremity ROM Assessment Within Functional Limits Strength Lower Extremity Strength Assessment Right Impaired Hip 4-/5 Sensation Assessment Sensation Gross Sensation WNL Muscle Tone Muscle Tone WNL Yes M6 PT-IP Treatment Start: 09/26/21 12:15 Freq: NEEDED Status: Active Protocol: Document 09/26/21 09:30 AB (Rec: 09/26/21 12:30 AB [email or web address]) Physical Therapy Treatment Education Education Provided Precautions,Weight Bearing Status,Post-Op Packet,Safety M7 PT-IP Assessment and Plan Start: 09/26/21 12:15 Freq: NEEDED Status: Active Protocol: Document 09/26/21 09:30 AB (Rec: 09/26/21 12:30 AB [email or web address]) PT Summary Assessment and Plan Potential Rehabilitation Potential Good Status of Condition at Evaluation Stable Summary Impairments Pain,ROM,Strength,Balance, Coordination,Sensation,Tone, Cognition,Bed Mobility, Transfers,Gait,Activity Tolerance Assessment Summary pt requiring SBA to CGA with mobility using FWW. pt will have his spouse to assist him at home. pt refused caregiver training with spouse and stated that he will be fine at home. pt is set up for caregiver training. Goals Bed Mobility Goal Independent Transfer Goal Independent,Front Wheeled Walker Gait Goal Independent,Front Wheel Walker Gait Distance 200 Other Goals up/down 2 steps using SPC mod I Days to Meet Goals 5 Frequency of Treatment Frequency Of Treatment Twice a Day Treatment Plan Physical Therapy Treatment Plan Bed Mobility Training,Transfer Training,Gait Training, Therapeutic Exercise,Balance Retraining,Post Op Education, Discharge Planning,Hot or Cold Pack,Neuromuscular Re-ed, Coordination Retraining,Manual Therapy Precautions Posterior Hip Precautions No Hip Flexion > 90 degrees,No Hip Internal Rotation,No Hip Adduction Weight Bearing Status Weight Bearing Status Weight Bear as Tolerated Allowed Weight Bearing Amount (enter % RLE WBAT or #) (%) Recommendations To Nursing Amount of Assist Needed 1 Person Assist Discharge Recommendations PT Discharge Recommendations Home with Assistance, Outpatient PT Transportation Needs at Discharge Private Vehicle
[2021-09-26] MEDS: LOSARTAN 50 MG TABLET 100 MG PO (10:15)
[2021-09-26 11:25] VITALS: BP 129/74; PULSE 64; RESP 18; TEMP 36.3; O2SAT 96
--- NOTE | 2021-09-26 11:31 | PC.NURSE ---
Addendum entered by Guillermina Toscano R.N. 09/26/21 11:52: Patients blood pressure 170s/103 earlier. Gave losartan and down to 130s/70s. Patient is feeling good, asymptomatic. He will be discharged after lunch. Original Note: 0700- Patients r.hip dressing is cdi with aquacel in place. CMS wnl and ppx2. Hemovac taken out, and patient tolerated well. Got oxycodone increased to 10mg and this has been more helpful for discomfort than only the 5mg. Patient is sitting up in his chair after working with physical therapy. 1100- Patient is getting dressed and will be discharged home around 1300.
--- NOTE | 2021-09-26 12:50 | PC.NURSE ---
Patient discharged: Patient teaching done at bedside with patient and spouse. All questions and concerns were addressed. Patient is aware of new prescriptions medication changes. Meds were send to [facility]. Last dose of pain medication given at 1200pm. Patient left in stable condition, VSS. Personal belongings were carried out by spouse. Patient escorted down to personal vehicle via WC by EDUARDO.
--- NOTE | 2021-09-26 13:16 | CM.DANOTE ---
DCP Assessment: 70 yr old male who was admitted for elective R ROBIN. Preformed by Dr. Garcia. Patient currently lives with his Carmelita, patient met with PT and stated he is independent with all ADLs and drives independently. patient lives in a single level home with 2 steps to enter the home. patient has walk in shower with seat, has FWW and cane at home. according to PT patient is ready for home with assistance and is a 1 person assist. Insurance [employer] preferred and self pay Plan: DC home with with no DC planning needs. Abiola Garcia RNmanager of housekeeping Discharge Planning/Care Management Advanced directive, confirm from FAMILY Start: 09/25/21 13:54 Freq: Q24H Status: Discharge Protocol: Document 09/25/21 13:56 AKP (Rec: 09/25/21 13:56 AKP [id number]) Advance Directive, confirm on record Time 13:56 Person contacted to ask Copy received No CM Discharge Assessment Start: 09/26/21 13:14 Freq: Status: Active Protocol: Document 09/26/21 10:15 HS (Rec: 09/26/21 13:15 HS [id number]) Discharge Planning Assessment Assigned Box Repairer Abiola Garcia RNanalytics senior manager DPOA/Assigned Designee Name Carmelita Braun (Spouse) Advance Directives? Yes Advance Directives on File No History Provided By Patient,Medical Record Has Patient been admitted in last 30 No days? Prior Living Arrangements House Household Members spouse Type of transporation used prior to Drives own vehicle admit Independent with ADL's Yes Is patient alert and oriented? Yes Caregiver for Another No Discharge Plan Home Referrals Initiated None needed Whiteboard Updated in Patient Room with Yes name and ext. # of Box Repairer Review Status In Process Next Review Type Continued Stay Review Pre-Anesthesia Assessment Start: 09/13/21 09:57 Freq: Status: Complete Protocol: Document 09/13/21 09:57 CAB (Rec: 09/13/21 10:43 CAB [id number]) Pre-Anesthesia Assessment Preferred Name Kashif Patient Information Reviewed Via Phone Assessment Assessment Completed With Patient Diagnostic Results BMP/CMP,CBC,EKG Comment Labs/EKG @ 08/31/21, COVID screen-needs to call to schedule Primary Care Provider Jasmine Knight Seen Specialist in Last 12 Months Yes Specialist Seen Bobbin Collector,Orthopedist Primary Language Faroese Instructional Paraprofessional Required No Height 175.26 cm Weight 86.183 kg Body Mass Index (BMI) 28.0 Hearing Ability Normal Visual Assist Magnifying Glass Dentition Type Teeth, Natural Present,Partial - Lower Barriers to Learning None Hx Anesthesia Reactions No Hx Family Anesthesia Reaction No Hx Malignant Hyperthermia No Hx Blood Transfusions No Anesthesia Review Requested Yes: Surgeon requested re: Cardiac alcohol intake current alcohol intake frequency a few times a week Alcohol Intake Frequency Other: 5 days/week, 2-3 at a time Smoking Status Former smoker how long ago did patient quit smoking Quit 04/2020 Substance Use Type does not use Pain Present Pain Reported Musculoskeletal Symptoms Abnormal Gait,Difficulty Walking,Joint Pain,Muscle Cramps,Neck Pain History of Falling (Recent or History of No ) Patient is completely paralyzed or No completely immobile Mental Status Oriented to own ability Is patient on oxygen? No Does patient have MAGUIRE/SOB Yes: MAGUIRE w/heavy exertion Hx Sleep Apnea No Currently Taking a Beta Allen No Hx Chest Pain No Hx SOB Yes: MAGUIRE w/heavy exertion Hx Syncope or Dizziness No Anti-Coagulant Therapy No Has a Bobbin Collector Yes: Dr. Metz-last visit Cardiac Testing Yes: Aubreyiscan @ [facility] 05/24/21 - low risk Hx Pacemaker/ICD Yes Pacemaker Rep Required? No: Pacemaker form scanned and put to surgery folder for dos Comment Cardiac records scanned Diet Type At Home Regular dysphagia No Bladder Pattern Frequency,Nocturia Urinary Catheter Present No Hx Urinary Self Catheterization No Diabetes No: Pre-diabetes Hx Drug Resistant Organism No Presence of External or Internal Medical Yes: Bilat IOLs Devices Have you had any close contact with No someone diagnosed with COVID-19? Received a COVID vaccine? Yes Received all doses? Yes Comment Plus booster Marital Status Lives With spouse Prior Living Arrangements House Number of Floors (Floors) One Floor Support System Spouse Does the Patient Have Assistance After Yes Surgery Patient Discharge Plan Description Return Home Comment Pt advised overnight length of stay per surgeon Feels Safe in Current Environment Yes Been Physically Hurt or Threatened By a No Person in Current Environment Do you have thoughts of harming yourself None or others? Are you currently considering suicide? No Do you have a plan to hurt yourself or No Plan others? Do You Have Any Spiritual Beliefs That No May Affect Your HC Choices? Do You Have Any Cultural Practices That No May Affect Your HC Choices? Comment Gnosticism Who Can We Speak to About Patient's Care Family, friends Identifying Code for Release of Patient Declines to issue Information Health Care Proxy/Next of Kin Carmelita () Health Care Proxy Emergency Contact Name Carmelita () Emergency Contact Advance Directives? Yes Advance Directives on File No Requested Patient Bring Advanced Yes Directives DOS Power of Biology Internship No PAC Instructions Durable medical equipment, Medications to take/avoid, Nasal antibiotic,No ETOH/ petroleum product on skin DOS, NPO,Post-op transportation,Pre -surgical wash,Sturdy shoes/ comfortable clothes,Do not bring valuables and remove jewelry
== END 2021-09-26 12:45 | disposition home or self-care (01) ==
LOC: OR 08:37 → AC 08:38
PROVIDERS: Admitting Provider Orthopaedic Surgery; PCP Nurse Practitioner; Referring Provider Orthopaedic Surgery; Visit Provider Orthopaedic Surgery
PROC: 0SR90JZ Replacement of Right Hip Joint with Synthetic Substitute, Open Approach (ICD-10-PCS; CPT 27130; principal; 2021-09-25 10:45)
DX: M16.11 Unilateral primary osteoarthritis, right hip (principal); I10 Essential (primary) hypertension; I25.10 Atherosclerotic heart disease of native coronary artery without angina pectoris; K21.9 Gastro-esophageal reflux disease without esophagitis; Z95.0 Presence of cardiac pacemaker; K22.70 Barrett's esophagus without dysplasia
CPT/HCPCS: 27130; 36415; 72170; 73502; 85014; 85018; 97116; 97161; 97530; C1776; G0378; C9290; J0171; J0690; J1100; J2250; J2405; J2704

== ENCOUNTER 2024-08-30 07:30 | Day surgery (SDC) | payer OTHER, SELFPAY ==
[2021-09-25 13:44] VITALS: BMI 28.0
--- NOTE | 2024-08-30 | PATH_ITS ---
[facility] Accession Number: [id number] No. of containers..01 Tissue . 01 Material submitted: . cecum - CECUM POLYP . 01 Diagnosis: CECUM POLYP: Tubular adenoma. STO 09/01/2024 142 Local . 01 Electronically signed: . Moris Alan MD, Pathologist NPI- [id number] . 01 Gross description: . Received in formalin with two patient identifiers and cecum polyp, is a single keller soft tissue fragment, 0.3 cm in greatest dimension, submitted in A1. ([id number]) /MRV 09/01/20241420 Local . 01 Pathologist provided ICD-10: D12.0 . 01 CPT . 666115 Specimen Comment: A courtesy copy of this report has been sent to [phone] Performed at: [address] [facility] [id number] MD Moris Alan MD Phone: [phone]
[2024-08-30 08:00] VITALS: BP 156/84; PULSE 75; RESP 16; TEMP 36.6; O2SAT 98
[2024-08-30] MEDS: LACTATED RINGERS 1,000 ML 42 ML IV (08:01)
--- NOTE | 2024-08-30 08:39 | P.HP_ITS ---
History of Present Illness History of Present Illness Date Patient Seen: 08/30/24 Time Patient Seen: 08:40 Chief complaint: SDC Narrative: 73-year-old male with a personal history of colon polyps here for surveillance. [facility], [facility] Medical History Former smoker Skin cancer Osteoarthritis Pre-diabetes Hepatitis C (~2010) Acid reflux Rangel's esophagus HTN (hypertension) HLD (hyperlipidemia) Arrhythmia Pacemaker (03/23/21) Surgical History Hx of angioplasty (~2019) History of prior ablation treatment (06/21/19) History of vasectomy Hx of bilateral cataract extraction (2019) Social History household members: spouse Smoking Status: Former smoker alcohol intake: current Meds Home Medications and Allergies Home Medications Medication Instructions Recorded Confirmed Type atorvastatin 20 mg tablet 20 mg PO BEDTIME 09/13/21 08/30/24 History fluticasone propionate 50 1 spray intranasal BEDTIME PRN 09/13/21 08/30/24 History mcg/actuation nasal Seasonal allergies spray,suspension losartan 100 mg tablet 100 mg PO BEDTIME 09/13/21 08/30/24 History omeprazole 20 mg tablet,delayed 20 mg PO DAILY 09/13/21 08/30/24 History release tamsulosin 0.4 mg capsule (Flomax) 0.4 mg PO DAILY 09/13/21 08/30/24 History acetaminophen 500 mg capsule 500 mg PO Q4H PRN fever or pain 09/26/21 08/30/24 Rx #90 caps aspirin 81 mg tablet,delayed 81 mg PO BID PRN X6 weeks to 09/26/21 Rx release prevent blood clots #90 tabs docusate sodium 100 mg capsule 100 mg PO BID PRN Constipation 09/26/21 08/30/24 Rx from narcotic pain meds #30 caps ibuprofen 400 mg tablet 400 mg PO Q4H PRN 09/26/21 08/30/24 Rx Pain/inflammation #90 tabs fluticasone propionate 50 1 spray intranasal BID 08/30/24 08/30/24 History mcg/actuation nasal spray,suspension Allergies Allergy/AdvReac Type Severity Reaction Status Date / Time No Known Drug Allergies Allergy Verified 08/30/24 07:50 Review of Systems Review of Systems ROS: Yes All systems reviewed with the patient and are negative except as otherwise documented Exam Vital Signs (past 8 hours): - 08/30/24 08:00 Temperature 97.8 F Pulse Rate 75 Respiratory Rate 16 Blood Pressure 156/84 H Pulse Oximetry 98 Oxygen Delivery Method Room Air Oxygen Delivery Method Room Air Const General: cooperative HENMT Head: normal to inspection Eyes General: appearance normal, both eyes and all related structures Neck Neck: normal visual inspection Chest Chest: normal inspection of the chest Resp Effort & Inspection: normal respiratory effort Cardio Rate: regular rate GI Inspection: normal to inspection Skin General: no rashes or lesions noted Neuro General: patient alert and patient awake Extrem General: normal to inspection and no pedal edema Psych Appearance: grossly normal Assessment & Plan Assessment & Plan narrative: 73-year-old male with a polyp history. Colonoscopy surveillance is pursued today. Time-Based Coding :: [TOTAL MINUTES] spent with patient and on the chart (including review of chart, obtaining history, exam, reviewing outside data, placing orders, documenting exam and treatment plan, and counseling patient) on [DATE].
--- NOTE | 2024-08-30 08:41 | PM.PREOP ---
Pre-operative Note Interval Note History & Physical reviewed/Exam performed by Physician: Yes Changes to H&P: No ASA Class (for procedural sedation): II
--- NOTE | 2024-08-30 08:42 | PM.PREOP ---
Pre-operative Note Interval Note History & Physical reviewed/Exam performed by Physician: Yes Changes to H&P: No ASA Class (for procedural sedation): III
--- NOTE | 2024-08-30 08:49 | P.OP.COLON_ITS ---
Operative Date/Time/Diagnoses Date of procedure: 08/30/24 Time of procedure: 08:49 Pre-op diagnosis: Colon polyp history Post-op diagnosis: same Procedure & Clinicians Study performed: Colonoscopy with cold forceps polypectomy Same procedure as scheduled: Yes Indications: Polyp history Surgeon: Elpidio Robledo Procedure Notes SCOAP/Timeout: Done Procedure in detail: After the risks and benefits were explained, written and verbal informed consent was obtained. The patient was brought into the procedure room and placed into the left lateral decubitus position. Please see anesthesia notes for sedation details. Digital rectal examination was accomplished. The scope was introduced into the patient and advanced under direct visualization to the cecum as identified by the appendiceal orifice and ileocecal valve. The scope was slowly withdrawn to carefully examine the mucosa for any defects or lesions. Comprehensive imaging was accomplished throughout the rectum including the dentate line. The colon was decompressed, the scope was then removed from the patient who tolerated the procedure well. Pediatric colonoscope Bowel prep adequate Scope withdrawal time: 10 minutes Sedation minutes: 14 Complications: none Impression: There was a diminutive polyp in the cecum removed with cold forceps. There were a couple of very diminutive scattered erosions of uncertain significance in the cecum. The terminal ileum was investigated and within normal limits. No additional pathology was appreciated throughout. The patient had evidence of grade 2 internal hemorrhoids with hypertrophied anal papillae. Endoscopic diagnosis 1. Colon polyp 2. Grade 2 Hemorrhoids with hypertrophied anal papillae Post-procedure Plan for aftercare: 1. Await histology 2. Surveillance colonoscopy can likely be discontinued at th is time. Disposition: PACU
[2024-08-30 09:10] VITALS: BP 107/59; PULSE 72; RESP 15; TEMP 36.3; O2SAT 94
[2024-08-30 09:16] VITALS: BP 110/68; PULSE 78; RESP 17; O2SAT 98
[2024-08-30 09:22] VITALS: BP 104/73; PULSE 76; RESP 12; TEMP 36.1; O2SAT 97
[2024-08-30 09:26] VITALS: BP 122/84; PULSE 79; RESP 19; TEMP 36.3; O2SAT 97
== END 2024-08-30 09:41 | disposition home or self-care (01) ==
PROVIDERS: PCP Nurse Practitioner; Referring Provider Internal Medicine Gastroenterology; Visit Provider Internal Medicine Gastroenterology
PROC: 0DJD8ZZ Inspection of Lower Intestinal Tract, Via Natural or Artificial Opening Endoscopic (ICD-10-PCS; CPT 45378; principal; 2024-08-30 08:30)
DX: Z12.11 Encounter for screening for malignant neoplasm of colon (principal); Z86.0100 Personal history of colon polyps, unspecified; K64.1 Second degree hemorrhoids; K64.4 Residual hemorrhoidal skin tags
CPT/HCPCS: 45378; J2704